=== PATIENT | male | born 1990 | race Two or more races ===

== ENCOUNTER 2017-05-21 07:01 | Emergency (ER) | payer MEDICAID ==
[~2017-05-21] VITALS: Ht 182.9 cm; Wt 100.0 kg
[2017-05-21] MEDS ORDERED: LORAZEPAM 2MG/ML CPJ ONE (07:35)
[2017-05-21] MEDS ORDERED: LEVETIRACETAM 500MG PREMIX 100 ML IV ONE (08:00)
[2017-05-21] MEDS ORDERED: LORAZEPAM 2MG/ML CPJ IV ONE (08:00)
[2017-05-21 08:18] LABS: BASOPHILS % 0.2 % (0.0-2.0); EOSINOPHILS % 0.4 % (0.0-5.0); HEMATOCRIT. 39.6 % (42.0-52.0); HEMOGLOBIN. 13.4 g/dL (14.0-18.0); LYMPHOCYTES % 7.7 % (20.0-50.0); MEAN CORPUSCULAR VOLUME 82.3 fL (80.0-94.0); MEAN PLATELET VOLUME 7.5 fl (7.4-10.4); MONOCYTES % 4.8 % (2.0-8.0); NEUTROPHILS % 86.9 % (40.0-76.0); PLATELET 193 x1000/uL (130-400); RED CELL DISTRIBUTION WIDTH 14.4 % (11.6-14.6)
[2017-05-21 08:29] LABS: CHLORIDE 109 mEq/L (98-107)
[2017-05-21 08:35] LABS: ETHANOL BLOOD < 10 mg/dL
[2017-05-21 08:37] LABS: CREATINE KINASE 406 IU/L (39-308)
[2017-05-21 09:55] LABS: CLARITY URINE CLEAR (CLEAR); COLOR URINE YELLOW (YELLOW); KETONES URINE NEGATIVE (NEGATIVE); LEUKOCYTE ESTERASE URINE NEGATIVE (NEGATIVE); NITRITE URINE NEGATIVE (NEGATIVE); OCCULT BLOOD URINE NEGATIVE (NEGATIVE); PH URINE 5.5 (4.5-8.0); PROTEIN URINE NEGATIVE (NEGATIVE); SPECIFIC GRAVITY URINE 1.019 (1.005-1.030); UROBILINOGEN URINE 0.2 E.U./dL (0.2-1.0)
[2017-05-21 10:33] LABS: *AMPHETAMINES SCREEN URINE NEGATIVE (NEGATIVE); *BARBITURATES SCREEN URINE NEGATIVE (NEGATIVE); *BENZODIAZEPINES SCREEN URINE NEGATIVE (NEGATIVE); *COCAINE SCREEN URINE NEGATIVE (NEGATIVE); METHADONE URINE SCREEN NEGATIVE (NEGATIVE); OPIATES URINE SCREEN NEGATIVE (NEGATIVE); PHENCYCLIDINE URINE SCREEN NEGATIVE (NEGATIVE)
[2017-05-21 10:34] LABS: CANNABINOID URINE SCREEN PRESUMTIVE POSITIVE (NEGATIVE)
[2017-05-21 13:06] VITALS: BP 142/65
== END 2017-05-21 13:11 | disposition home or self-care (01) ==
LOC: ER 07:01
DX: G40.419 Other generalized epilepsy and epileptic syndromes, intractable, without status epilepticus (principal); S09.8XXA Other specified injuries of head, initial encounter; I10 Essential (primary) hypertension; Y93.89 Activity, other specified; X58.XXXA Exposure to other specified factors, initial encounter; Y92.89 Other specified places as the place of occurrence of the external cause; Z63.4 Disappearance and death of family member
CPT/HCPCS: 36415; 70450; 71045; 80053; 80305; 81003; 82550; 85025; 93005; 96365; 99285; G0482; J1953; J2060; Z7610

== ENCOUNTER 2019-03-23 13:42 | Emergency (ER) | payer MEDICAID ==
[~2019-03-23] VITALS: Ht 182.9 cm; Wt 102.0 kg
[2019-03-23] MEDS ORDERED: LORAZEPAM 2MG/ML CPJ ONE (14:31)
[2019-03-23] MEDS ORDERED: LORAZEPAM 2MG/ML CPJ IM ONE (14:45)
[2019-03-23] MEDS ORDERED: LEVETIRACETAM 1000MG/100ML 100 ML IV ONE (14:45)
[2019-03-23 15:51] LABS: CLARITY URINE CLEAR (CLEAR); COLOR URINE YELLOW (YELLOW); KETONES URINE NEGATIVE (NEGATIVE); LEUKOCYTE ESTERASE URINE NEGATIVE (NEGATIVE); NITRITE URINE NEGATIVE (NEGATIVE); OCCULT BLOOD URINE 1+ (NEGATIVE); PROTEIN URINE 1+ (NEGATIVE); SPECIFIC GRAVITY URINE 1.016 (1.005-1.030); UROBILINOGEN URINE 0.2 E.U./dL (0.2-1.0)
[2019-03-23 16:06] LABS: *COCAINE SCREEN URINE NEGATIVE (NEGATIVE); CANNABINOID URINE SCREEN PRESUMTIVE POSITIVE (NEGATIVE); METHADONE URINE SCREEN NEGATIVE (NEGATIVE); OPIATES URINE SCREEN NEGATIVE (NEGATIVE); PHENCYCLIDINE URINE SCREEN NEGATIVE (NEGATIVE)
[2019-03-23 16:07] LABS: *AMPHETAMINES SCREEN URINE NEGATIVE (NEGATIVE); *BARBITURATES SCREEN URINE NEGATIVE (NEGATIVE); *BENZODIAZEPINES SCREEN URINE NEGATIVE (NEGATIVE)
[2019-03-23 16:30] LABS: CHLORIDE 107 mEq/L (98-107)
[2019-03-23 16:34] LABS: ETHANOL BLOOD < 10 mg/dL
[2019-03-23] MEDS ORDERED: ACETAMINOPHEN 500MG TABLET PO ONE (17:30)
[2019-03-23] MEDS ORDERED: KETOROLAC 15MG/ML VIAL IV ONE (17:30)
[2019-03-23 18:45] VITALS: BP 138/76
== END 2019-03-23 18:57 | disposition home or self-care (01) ==
LOC: ER 13:42 → CMPBEDREQ 19:53
DX: G40.909 Epilepsy, unspecified, not intractable, without status epilepticus (principal)
CPT/HCPCS: 36415; 70450; 71045; 80053; 80305; 80320; 81003; 82140; 83690; 96365; 96375; 99284; J1885; J1953; J2060; G0480